=== PATIENT | female | born 1950 | race Caucasian/White ===

== ENCOUNTER → 2016-12-01 | Outpatient (CLI) | payer MEDICARE, OTHER | END | disposition home or self-care (01) | LOC: GMAB 14:26 | PROVIDERS: ATTEND Family Medicine | DX: G60.9 Hereditary and idiopathic neuropathy, unspecified (principal); R42 Dizziness and giddiness ==

== ENCOUNTER → 2017-11-22 | Outpatient (CLI) | payer MEDICARE, OTHER | LOC: GMAB 16:59 | PROVIDERS: ATTEND Family Medicine | DX: M00.852 Arthritis due to other bacteria, left hip (principal) ==

== ENCOUNTER → 2017-11-30 | Outpatient (CLI) | payer MEDICARE, OTHER ==
--- NOTE | 2017-12-01 10:30 | CT ---
EXAM DESCRIPTION: Chest w/o Contrast CLINICAL HISTORY: 67 years, Female, NICOTINE DEPENDENCE COMPARISON: None TECHNIQUE: Thin-section noncontrast axial CT images are obtained according to our protocol. Reconstructed MPR images are created and reviewed as well. FINDINGS: Patchy densities in the medial segment right middle lobe and in the inferior segment of the lingula are consistent with chronic scarring. No masslike area to suggest malignant process. Lesser paramediastinal scarring is seen in the anterior segment right upper lobe with mild biapical pleural-parenchymal scarring right more than left. Few tiny subpleural nodular densities are consistent with small granulomas in the 1 to 3 mm size range. Minimal low-risk patient, no follow-up is needed. See below. Minimal scarring in the lateral right middle lobe inferiorly. Lung bases appear clear. No pneumothorax or pleural effusion. No worrisome mass or larger nodule to suggest a significant process. Heart size is normal with no pericardial effusion. Some images through the upper abdomen are included. Gallbladder clips are present. Upper poles of kidneys, adrenal glands, upper portion of the pancreas, upper portions of liver and spleen are unremarkable. Coronal and sagittal reformatted images are evaluated. Degenerative levoscoliosis of the T-spine is seen with tortuosity of the aorta. No aortic aneurysm. Minimal mosaic perfusion or subtle patchy groundglass infiltrates are noted in the right apex and in the right perihilar region. Sagittal images show no thoracic spinal stenosis or acute appearing compression fracture. Sternum appears intact. Degenerative changes are prominent lower C-spine. Small hiatal hernia seen in the lower chest. Breast tissue pattern appears benign. Correlate with mammographic findings. On coronal and sagittal images, a 6 mm groundglass density in the right apex is seen. On the axial images this does not appear focal or nodular. Follow-up in 6 months is recommended in this patient with a history of smoking. This is seen on sagittal image 61, series 302 and coronal image 55, series 301. IMPRESSION: Coronal and sagittal images show 6 mm groundglass nodule in the right upper lobe. 6 month follow-up CT is recommended. Scattered tiny granulomas in the lungs with scarring in the right middle lobe and lingula. 2017 Fleischner Society Recommendations for Subsolid (groundglass) Lung Nodule Follow-Up based on size (average of long- and short-axis diameters). Use most suspicious nodule for followup. Single <6 mm Ground glass: No routine follow-up <6 mm Part solid: No routine follow-up > or = 6 mm Ground glass: CT at 6-12 months to confirm persistence, then CT every 2 years until 5 years > or = 6 mm Part solid: CT at 3-6 months to confirm persistence, If unchanged and solid component remains<6mm, annual CT should be performed for 5 years. This exam was performed according to our departmental dose-optimization program, which includes automated exposure control, adjustment of the mA and/or kV according to patient size and/or use of iterative reconstruction technique. Total DLP equals 450.83 mGycm. Electronically signed by: Álvaro Medina MD 12/01/2017 10:28 AM CDT
== END ==
LOC: CT 13:54
PROVIDERS: ATTEND Family Medicine
DX: R06.02 Shortness of breath (principal); R05 Cough; F17.210 Nicotine dependence, cigarettes, uncomplicated

== ENCOUNTER → 2018-05-17 | Outpatient (CLI) | payer MEDICARE, OTHER | LOC: GMAE 10:40 | PROVIDERS: ATTEND Family Medicine | DX: Z11.59 Encounter for screening for other viral diseases (principal); R94.6 Abnormal results of thyroid function studies; E04.1 Nontoxic single thyroid nodule; G25.81 Restless legs syndrome; D50.9 Iron deficiency anemia, unspecified; D50.0 Iron deficiency anemia secondary to blood loss (chronic); Z79.899 Other long term (current) drug therapy ==

== ENCOUNTER → 2018-06-03 | Outpatient (CLI) | payer MEDICARE, OTHER ==
--- NOTE | 2018-06-03 16:32 | US ---
US HEAD NECK SOFT TISSUE CLINICAL STATEMENT: ABNORMAL RESULTS OF THYROID FUNCTION STUDIES. COMPARISON: None FINDINGS: Size right thyroid lobe: 4.9 x 1.7 x 1.5 cm Size left thyroid lobe: 3.4 x 1.4 x 1.4 cm Size isthmus: 0.15 cm Estimated total number of nodules greater than or equal to 1 cm: 1 Nodule 1: Size: 1.0 x 1.0 x 0.5 cm Location: Right Mid Composition: solid or almost completely solid: 2 points Echogenicity: hypoechoic: 2 points Shape: wider than tall: 0 points Margins: smooth: 0 points Echogenic foci: none: 0 points ACR Total Points: 4; ACR TI-RADS risk category: TR4 - moderately suspicious nodule. Nodule 2: Size: 0.5 x 0.4 x 0.4 cm Location: Right Lower Composition: solid or almost completely solid: 2 points Echogenicity: hypoechoic: 2 points Shape: wider than tall: 0 points Margins: smooth: 0 points Echogenic foci: none: 0 points ACR Total Points: 4; ACR TI-RADS risk category: TR4 - moderately suspicious nodule. Nodule 3: Size: 0.8 x 0.7 x 0.6 cm Location: Left Mid Composition: solid or almost completely solid: 2 points Echogenicity: very hypoechoic: 3 points Shape: wider than tall: 0 points Margins: smooth: 0 points Echogenic foci: none: 0 points ACR Total Points: 5; ACR TI-RADS risk category: TR4 - moderately suspicious nodule. The soft tissue surrounding the thyroid gland was scanned with no evidence of distinct solid mass or cyst. No large calcifications or parenchymal edema. Overlying skin changes. No abnormal vascularity. IMPRESSION: 1. Nodule 1: ACR TI-RADS 2017 Category 4. Recommend: Follow-up ultrasound in 1 year. . Please see ACR TI-RADS 2017 recommendations below.* 2. Nodule 2: ACR TI-RADS 2017 Category 4. Recommend: No further follow-up. 3. Nodule 3: ACR TI-RADS 2017 Category 5. Recommend: Follow-up ultrasound in 1 year. 4. Soft tissue around the thyroid gland is unremarkable. *ACR TI-RADS 2017 Recommendations: TR1: No FNA or follow up TR2: No FNA or follow up TR3: FNA if >/= 2.5 cm, follow up if 1.5 - 2.4 cm in 1, 3, and 5 years TR4: FNA if >/= 1.5 cm, follow up if 1.0 - 1.4 cm in 1, 2, 3, and 5 years TR5: FNA if >/= 1.0 cm, follow up if 0.5 - 0.9 cm every year for 5 years ACR TI-RADS recommends that no more than two nodules with the highest ACR TI-RADS total point should be biopsied and no more than four nodules should be followed. Electronically signed by: Ivan Ferrer MD 06/03/2018 4:30 PM CDT
--- NOTE | 2018-06-03 16:48 | CT ---
EXAM DESCRIPTION: Chest w/o Contrast : Computed Tomography. CLINICAL HISTORY: SOLITARY PULMONARY NODULE COMPARISON: CT scan chest without contrast 11/30/2017. Ultrasound of the thyroid on this visit. TECHNIQUE: Spiral-axial scans at 5 x 5 mm intervals through the lungs and thorax without IV contrast. 2.5 mm lung algorithm axial reconstructions. Coronal and sagittal 2.0 Mm reconstructions. Total Exam DLP: 403.59 mGy-cm. This exam was performed according to our departmental dose-optimization program which includes automated exposure control, adjustment of the mA and/or kV according to patient size and/or use of iterative reconstruction technique; to reduce radiation dose to as low as reasonably achievable (ALARA). FINDINGS: Small blebs in the upper lobes bilaterally. Focal nodules bilaterally associated with the pleura less than 5 mm mean diameter. Scarring in noted in the lateral right middle lobe laterally and also abutting the anterior medial pleura and abutting the pericardium. Bilobed solid nodule in the anterior lateral inferior right upper lobe with mean diameter 3 mm on axial sequence 4 image 44 is stable since the prior study. Evaluation of the soft tissues is limited due to lack of IV contrast. Thyroid gland is only partially seen. Atherosclerotic calcifications in the brachiocephalic vessels aortic arch and descending thoracic aorta. Soft tissue density possibly representing an azygos node abutting the superior vena cava and the ascending aorta is stable. No dominant soft tissue masses in the axilla or chest wall. Included peritoneal cavity with no fluid or free air. Normal size and density of the included adrenal glands spleen, left kidney and liver. Surgical clips gallbladder fossa with no fluid. Fatty infiltration of the pancreas. Scoliosis and multiple levels of spondylosis in the thoracic spine and included lumbar spine. No blastic or destructive lytic lesions. IMPRESSION: 1. Minimal emphysematous changes in the upper lung francisco with areas of pleural and parenchymal scarring. No significantly sized nodules were visualized. According to [facility] Best Practice guidelines utilizing 2017 Fleischner Society recommendations for single solid lung nodule follow-up, no routine follow-up is recommended. Please see below.* 2. Evaluation of soft tissue Limited due to lack of IV contrast but no large soft tissue masses. Stable appearance of the dayna and mediastinum since the prior study. *2017 Fleischner Society Recommendations for Single Solid Lung Nodule Follow-Up based on size (average of long- and short-axis diameters) <6 mm Low-Risk Patient: No routine follow-up <6 mm High-Risk Patient: Optional CT at 12 months Electronically signed by: Ivan Ferrer MD 06/03/2018 4:46 PM CDT
== END ==
LOC: US 10:31
PROVIDERS: ATTEND Family Medicine
DX: R91.1 Solitary pulmonary nodule (principal); R94.6 Abnormal results of thyroid function studies; E04.1 Nontoxic single thyroid nodule

== ENCOUNTER → 2018-10-06 | Outpatient (CLI) | payer MEDICARE, OTHER ==
[~2018-10-06] MED LIST: IPRATROPIUM/ALBUTEROL 3 ML VIAL NEB ONE
== END ==
LOC: RESP 13:39
PROVIDERS: ATTEND Family Medicine
DX: J44.9 Chronic obstructive pulmonary disease, unspecified (principal)
CPT/HCPCS: 94060; J7620

== ENCOUNTER → 2019-05-30 | Outpatient (CLI) | payer MEDICARE, OTHER | LOC: GMAE 13:37 | PROVIDERS: ATTEND Family Medicine | DX: Z79.899 Other long term (current) drug therapy (principal) ==